=== PATIENT | male | born 1995 | race Caucasian/White ===

== ENCOUNTER 2021-02-15 11:15 | Outpatient (CLI) | payer BC, SELFPAY | END 2021-02-15 11:16 | disposition home or self-care (01) | LOC: ANHCOVIDVC 11:15 | PROVIDERS: PCP Family Medicine | DX: Z23 Encounter for immunization (principal) | CPT/HCPCS: 0001A; 91300 ==

== ENCOUNTER 2021-03-08 11:16 | Outpatient (CLI) | payer BC, SELFPAY | END 2021-03-08 11:17 | disposition home or self-care (01) | LOC: ANHCOVIDVC 11:16 | PROVIDERS: PCP Family Medicine | DX: Z23 Encounter for immunization (principal) | CPT/HCPCS: 0002A; 91300 ==